=== PATIENT | female | born 1995 ===

== ENCOUNTER 2022-04-14 14:35 | Emergency (ER) | payer BC, SELFPAY ==
--- NOTE | ~2022-04-14 | XR_ITS ---
XR shoulder LT min 2V 04/14/2022 15:14 INDICATION: Left shoulder pain PROCEDURE: 3 views left shoulder COMPARISON: No prior studies for comparison. FINDINGS: Fracture, dislocation or subluxation is not identified. The soft tissues appear within norm al limits. No foreign bodies are identified. IMPRESSION: 1: NO ACUTE BONE OR JOINT ABNORMALITY IDENTIFIED. Reviewed, dictated and finalized at location B.
[2022-04-14 14:44] VITALS: BP 108/70; PULSE 67; RESP 16; TEMP 36.8; O2SAT 100
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
== END 2022-04-14 15:37 | disposition home or self-care (01) ==
PROVIDERS: Emergency Provider Registered Nurse
DX: M25.512 Pain in left shoulder (principal); V48.2XXA Person on outside of car injured in noncollision transport accident in nontraffic accident, initial encounter; K21.9 Gastro-esophageal reflux disease without esophagitis
CPT/HCPCS: 73030; 99213; G0463